=== PATIENT | male | born 1975 | race American Indian/Alaskan Native ===

== ENCOUNTER 2017-01-07 00:47 | Emergency (ER) | payer SELFPAY | END 2017-01-07 01:00 | disposition left against medical advice (07) | LOC: ED 00:47 | DX: M54.9 Dorsalgia, unspecified (principal); M54.2 Cervicalgia; Z53.21 Procedure and treatment not carried out due to patient leaving prior to being seen by health care provider; Y93.9 Activity, unspecified; Y92.9 Unspecified place or not applicable; Y99.9 Unspecified external cause status ==

== ENCOUNTER 2017-08-29 13:17 | Emergency (ER) | payer SELFPAY ==
[2017-08-29 14:18] VITALS: BP 129/78
[2017-08-29 16:01] LABS: Basophils % (Auto) 0.4 % (0.0-1.8); Eosinophils % (Auto) 0.1 % (0.0-4.3); Hematocrit 47.2 % (35.5-45.6); Hemoglobin 16.1 gm/dl (11.8-15.2); Lymphocytes # (Auto) 1.1 K/mm3 (1.2-5.4); Lymphocytes % (Auto) 13.2 % (13.4-35.0); Mean Corpuscular HGB Conc 34 % (32-34); Mean Corpuscular Hemoglobin 32 pg (28-32); Mean Corpuscular Volume 94 fl (84-94); Monocytes # (Auto) 0.4 K/mm3 (0.0-0.8); Monocytes % (Auto) 4.4 % (0.0-7.3); Platelet Count 291 K/mm3 (140-440); Red Blood Count 5.02 M/mm3 (3.65-5.03); Red Cell Distribution Width 13.4 % (13.2-15.2)
[2017-08-29 16:25] LABS: Alanine Aminotransferase 15 units/L (7-56); Albumin 4.2 g/dL (3.9-5); BUN/Creatinine Ratio 13; Blood Urea Nitrogen 9 mg/dL (9-20); Calcium 9.6 mg/dL (8.4-10.2); Hemolysis Index 63
[2017-08-29] MEDS ORDERED: ZOFRAN ODT PO ONE (18:39)
[2017-08-29] MEDS ORDERED: NACL 0.9% 1000 ML 1,000 ML IV ONE (18:48)
--- NOTE | 2017-08-30 05:12 | Emergency Department Report ---
ED General Adult HPI - General Chief complaint: Abdominal Pain Stated complaint: NAUSEA/VOMITING Time Seen by Provider: 08/30/17 05:03 Source: EMS Mode of arrival: Wheelchair Limitations: No Limitations - History of Present Illness Initial comments: Type II diabetic ran out of his insulin sugar was high got nausea vomiting w/ abd cramps, he denies any fever or denies any other complaints he's had a little bit of intermittent abdominal pain after he throws up no more vomiting in the ED at present. Denies chest pain denies fever denies back pain denies headache stiff neck or cough pain or leg pain or swelling, no black or blood in emesis or stool, ran out of insulin and noncompliatn w. meds, hx of abd pain in past sx are similar to that, no fever no chills denies pain Severity scale (0 -10): 0 - Related Data Home Medications Medication Instructions Recorded Confirmed Last Taken Insulin Glargine,Hum.rec.anlog 40 unit SQ QHS 07/29/14 07/29/14 07/28/14 [Lantus] 1 Previous Rx's Medication Instructions Recorded Last Taken Type methOCARBAMOL [Robaxin] 500 mg PO BID #10 tab 07/29/14 Unknown Rx traMADol [Ultram] 50 mg PO Q6HR PRN #14 tablet 07/29/14 Unknown Rx Ciprofloxacin HCl [Ciprofloxacin 500 mg PO BID #14 tablet 02/27/15 Unknown Rx TAB] Doxycycline [Vibramycin CAP] 100 mg PO Q12HR #14 capsule 03/13/15 Unknown Rx metroNIDAZOLE [Flagyl TAB] 500 mg PO Q12HR #14 tab 03/13/15 Unknown Rx Insulin Aspart [NovoLOG Flexpen] 100 unit SQ AC #5 insuln.pen 08/30/17 Unknown Rx Insulin Glargine,Hum.rec.anlog 40 unit SQ HS #1 vial 08/30/17 Unknown Rx [Lantus] Allergies Allergy/AdvReac Type Severity Reaction Status Date / Time amoxicillin AdvReac Unknown Verified 02/26/15 19:26 ED Review of Systems ROS: Stated complaint: NAUSEA/VOMITING Other details as noted in HPI Comment: All other systems reviewed and negative Constitutional: denies: diaphoresis, fever, malaise, weakness Eyes: denies: eye discharge, vision change Respiratory: denies: orthopnea, shortness of breath, SOB with exertion, SOB at rest, stridor, wheezing Cardiovascular: denies: chest pain, palpitations, dyspnea on exertion, orthopnea , edema, syncope, paroxysmal nocturnal dyspnea Gastrointestinal: nausea, vomiting. denies: diarrhea, constipation, hematemesis , melena, hematochezia Genitourinary: denies: hematuria, discharge, testicular pain, testicular mass Musculoskeletal: denies: joint swelling, arthralgia, myalgia Neurological: denies: numbness, paresthesias, confusion, abnormal gait, vertigo ED Past Medical Hx - Past Medical History Hx Diabetes: Yes (IDDM) Additional medical history: high cholesterol - Surgical History Additional Surgical History: carpal tunnel - Social History Smoking Status: Never Smoker Substance Use Type: None - Medications Home Medications: Home Medications Medication Instructions Recorded Confirmed Last Taken Type Insulin Glargine,Hum.rec.anlog 40 unit SQ QHS 07/29/14 07/29/14 07/28/14 History [Lantus] 1 methOCARBAMOL [Robaxin] 500 mg PO BID #10 tab 07/29/14 Unknown Rx traMADol [Ultram] 50 mg PO Q6HR PRN #14 tablet 07/29/14 Unknown Rx Ciprofloxacin HCl [Ciprofloxacin 500 mg PO BID #14 tablet 02/27/15 Unknown Rx TAB] Doxycycline [Vibramycin CAP] 100 mg PO Q12HR #14 capsule 03/13/15 Unknown Rx metroNIDAZOLE [Flagyl TAB] 500 mg PO Q12HR #14 tab 03/13/15 Unknown Rx Insulin Aspart [NovoLOG Flexpen] 100 unit SQ AC #5 insuln.pen 08/30/17 Unknown Rx Insulin Glargine,Hum.rec.anlog 40 unit SQ HS #1 vial 08/30/17 Unknown Rx [Lantus] ED Physical Exam - General Limitations: No Limitations General appearance: alert, in no apparent distress, anxious - Head Head exam: Present: atraumatic, normocephalic - Eye Eye exam: Present: normal appearance, PERRL, EOMI - ENT ENT exam: Present: normal exam, normal orophraynx - Neck Neck exam: Present: normal inspection. Absent: tenderness, meningismus - Respiratory Respiratory exam: Present: normal lung sounds bilaterally. Absent: respiratory distress, wheezes, rales, rhonchi, stridor, chest wall tenderness, accessory muscle use, decreased breath sounds, prolonged expiratory - Cardiovascular Cardiovascular Exam: Present: regular rate, normal rhythm, normal heart sounds. Absent: systolic murmur, diastolic murmur, rubs, gallop - GI/Abdominal GI/Abdominal exam: Present: soft. Absent: tenderness, guarding, rebound, mass, bruit, pulsatile mass - Extremities Exam Extremities exam: Present: normal inspection, normal capillary refill. Absent: pedal edema, joint swelling, calf tenderness - Back Exam Back exam: Present: normal inspection. Absent: CVA tenderness (L), muscle spasm , paraspinal tenderness, vertebral tenderness - Neurological Exam Neurological exam: Present: alert, oriented X3, CN II-XII intact. Absent: motor sensory deficit - Skin Skin exam: Absent: cyanosis, diaphoretic, erythema, urticaria, vesicles, petechiae, pallor, abrasion, ecchymosis ED Course Vital Signs 08/29/17 14:14 Temperature 98.2 F Pulse Rate 71 Respiratory 20 Rate Blood Pressure 129/78 O2 Sat by Pulse 98 Oximetry - Reevaluation(s) Reevaluation #1: 08/30/17 05:48 pt given one more liter in ed, ED Medical Decision Making - Lab Data Result diagrams: 08/29/17 15:46 08/29/17 15:46 - Medical Decision Making Patient's vomiting was controlled with Zofran he was given a liter. Repeat glucose was 276 he did refuse a blood gas he also refuses re-stick to check for ketones and repeat chemistry he did have 1 L of fluids he is now stating he just wants go AMA and have us refill his insulin he is alert and oriented 3 without complaints he did feel like he needed another liter however his IV was accidentally pulled at that point he became angry and said I does want to do like to refill his insulin he is here tolerating plenty of fluids and he did refuse an ABG. he did refuse chemistry and check lipase he was unable to produce urine as well. He has no surgical abdomen at this time he has no nausea vomiting no persistent nausea and vomiting is resolved vs signs were stable. Normal heart rate and pulse and blood pressure he was afebrile and nontoxic the abdomen had no acute abdomen was soft and nontender throughout. He will need to see his regular doctor or return immediately if neurologic symptoms or call 911 as previously noted no acute abdomen at this time and he was tolerating by mouth, ph is 7.4, tolerating po , given another liter and stable outpt fu Critical care attestation.: If time is entered above; I have spent that time in minutes in the direct care of this critically ill patient, excluding procedure time. ED Disposition Clinical Impression: Poorly controlled diabetes mellitus Disposition: DC-01 TO HOME OR SELFCARE Is pt being admited?: No Condition: Stable Instructions: Diabetes Mellitus Type 2 in Adults (ED) Additional Instructions: return if new or alarmng symptoms Prescriptions: Insulin Aspart [NovoLOG Flexpen] 100 unit SQ AC #5 insuln.pen Insulin Glargine,Hum.rec.anlog [Lantus] 40 unit SQ HS #1 vial Referrals: PRIMARY CARE, [Primary Care Provider] - 3-5 Days Time of Disposition: 06:20
[2017-08-30] MEDS ORDERED: NACL 0.9% 1000 ML 1,000 ML IV ONE (05:47)
== END 2017-08-30 06:35 | disposition home or self-care (01) ==
LOC: ED 13:17
DX: R10.9 Unspecified abdominal pain (principal); R11.2 Nausea with vomiting, unspecified; E11.9 Type 2 diabetes mellitus without complications
CPT/HCPCS: 36415; 80053; 82803; 82962; 85025; 96360; 99283; J7030; Q0162

== ENCOUNTER 2019-08-03 16:22 | Inpatient (IN) | payer OTHER ==
--- NOTE | 2019-08-03 16:27 | Emergency Department Report ---
ED Neuro Deficit HPI - General Chief Complaint: Neuro Symptoms/Deficit Stated Complaint: NEURO ISSUES Time Seen by Provider: 08/03/19 16:24 Source: patient, EMS (verbal report received from emergency medical services. EMS documentation not available at time of chart dictation ), RN notes reviewed Mode of arrival: Wheelchair Limitations: No Limitations, Physical Limitation - History of Present Illness Initial Comments: Memory care : Patient does not recall, believes they're in the [facility] network Past medical history: Diabetes, distant history of right shoulder fracture/fall The patient is a 44-year-old gentleman brought to the hospital by emergency medical services a possible code stroke. Patient denies physical pain at this time. Neurologic deficits include facial droop, and slurred speech. Last known well time was last night. Patient woke up this morning with the symptoms. He denies physical pain. He denies additional symptoms. He specifically denies rash, sore throat, cold/URI symptoms, and he denies travel to areas that have endemic Lyme disease. -: This morning (she woke up with symptoms. Last known well time was last night.) Location: speech, right face Presenting Symptoms: Present: Facial Droop/Numbness, Unable to Speak Clearly. Absent: Weak/Paralyzed One Side, Sudden, Severe Headache, Blurred/Loss of Vision, Altered Mental Status History of same: No On Anticoagulants: No Associated Symptoms: denies other symptoms - Related Data Home Medications: Home Medications Medication Instructions Recorded Confirmed Last Taken Insulin Glargine,Hum.rec.anlog 40 unit SQ QHS 07/29/14 07/29/14 07/28/14 [Lantus] 1 Previous Rx's Medication Instructions Recorded Last Taken Type methOCARBAMOL [Robaxin] 500 mg PO BID #10 tab 07/29/14 Unknown Rx traMADoL [Ultram] 50 mg PO Q6HR PRN #14 tablet 07/29/14 Unknown Rx Ciprofloxacin HCl [Ciprofloxacin 500 mg PO BID #14 tablet 02/27/15 Unknown Rx TAB] DOXYCYCLINE Hyclate [Vibramycin 100 mg PO Q12HR #14 capsule 03/13/15 Unknown Rx CAP] metroNIDAZOLE [Flagyl TAB] 500 mg PO Q12HR #14 tab 03/13/15 Unknown Rx Insulin Aspart (Nf) [NovoLOG 100 unit SQ AC #5 insuln.pen 08/30/17 Unknown Rx Flexpen] Insulin Glargine,Hum.rec.anlog 40 unit SQ HS #1 vial 08/30/17 Unknown Rx [Lantus] Allergies/Adverse Reactions: Allergies Allergy/AdvReac Type Severity Reaction Status Date / Time amoxicillin AdvReac Unknown Verified 02/26/15 19:26 ED Review of Systems ROS: Stated complaint: NEURO ISSUES Other details as noted in HPI Constitutional: denies: fever Eyes: denies: eye discharge ENT: denies: congestion Cardiovascular: denies: syncope Gastrointestinal: denies: abdominal pain Genitourinary: denies: dysuria Musculoskeletal: myalgia (chronic right-sided shoulder pain secondary to subacute/chronic right-sided shoulder fracture) Neurological: denies: headache Psychiatric: anxiety Hematological/Lymphatic: denies: easy bleeding ED Past Medical Hx - Past Medical History Previous Medical History?: Yes Hx Diabetes: Yes (IDDM) Additional medical history: high cholesterol - Surgical History Past Surgical History?: Yes Additional Surgical History: carpal tunnel - Social History Smoking Status: Never Smoker Substance Use Type: None - Medications Home Medications: Home Medications Medication Instructions Recorded Confirmed Last Taken Type Insulin Glargine,Hum.rec.anlog 40 unit SQ QHS 07/29/14 07/29/14 07/28/14 History [Lantus] 1 methOCARBAMOL [Robaxin] 500 mg PO BID #10 tab 07/29/14 Unknown Rx traMADoL [Ultram] 50 mg PO Q6HR PRN #14 tablet 07/29/14 Unknown Rx Ciprofloxacin HCl [Ciprofloxacin 500 mg PO BID #14 tablet 02/27/15 Unknown Rx TAB] DOXYCYCLINE Hyclate [Vibramycin 100 mg PO Q12HR #14 capsule 03/13/15 Unknown Rx CAP] metroNIDAZOLE [Flagyl TAB] 500 mg PO Q12HR #14 tab 03/13/15 Unknown Rx Insulin Aspart (Nf) [NovoLOG 100 unit SQ AC #5 insuln.pen 08/30/17 Unknown Rx Flexpen] Insulin Glargine,Hum.rec.anlog 40 unit SQ HS #1 vial 08/30/17 Unknown Rx [Lantus] ED Neuro Physical Exam - General Limitations: Physical Limitation General appearance: alert, in no apparent distress Suspected Stroke: Yes - Head Head exam: Present: atraumatic, normocephalic - Eye Eye exam: Present: normal appearance, PERRL, EOMI, other (visual acuity intact to finger counting and color perception at the close distance). Absent: nystagmus - ENT ENT exam: Present: normal exam, normal orophraynx, mucous membranes moist, normal external ear exam, other (is a right-sided facial droop. The forehead is spared.) - Neck Neck exam: Present: normal inspection, full ROM. Absent: tenderness, meningismus - Respiratory Respiratory exam: Present: normal lung sounds bilaterally. Absent: respiratory distress - Cardiovascular Cardiovascular Exam: Present: regular rate, normal rhythm, normal heart sounds. Absent: bradycardia, tachycardia, irregular rhythm, systolic murmur, diastolic murmur, rubs, gallop - GI/Abdominal GI/Abdominal exam: Present: soft. Absent: distended, tenderness, guarding, rebound, rigid, pulsatile mass - Rectal Rectal exam: Present: deferred - Extremities Exam Extremities exam: Present: normal inspection, other (2+ pulses noted in the bilateral upper and lower extremities. There is no long bony tenderness. The muscular compartments are soft. The right upper extremity is in a sling). Absent: tenderness, calf tenderness - Back Exam Back exam: Present: normal inspection. Absent: tenderness, CVA tenderness (R), CVA tenderness (L), vertebral tenderness - Neurological Exam Neurological exam: Present: alert, oriented X3, other (is a right-sided facial droop. The forehead is spared. The extraocular movements are intact bilaterally. The tongue is midline. V1, V2, V3 intact to sensation and light touch bilaterally.). Absent: motor sensory deficit - NIHSS Assessment Interval: Baseline 1a. Level of Consciousness: alert/keenly responsive 1b. LOC Questions: answers both correctly 1c. LOC Commands: performs tasks correctly 2. Best Gaze: normal 3. Visual: no visual loss 4. Facial Palsy: partial paralysis 5b. Motor Arm Right: no drift 5a. Motor Arm Left: no drift 6a. Motor Leg Left: no drift 6b. Motor Leg Right: no drift 7. Limb Ataxia: absent 8. Sensory: normal 9. Best Language: no aphasia 10. Dysarthria: normal 11. Extinction/Inattention: no abnormality Total Score: 2 Stroke Severity: Minor Stroke - Psychiatric Psychiatric exam: Present: normal affect, normal mood - Skin Skin exam: Present: warm, dry, intact, normal color. Absent: rash ED Course Vital Signs 08/03/19 08/03/19 08/03/19 16:40 16:51 17:30 Pulse Rate 74 77 Respiratory 16 12 Rate Blood Pressure 165/96 Blood Pressure 168/102 [Left] O2 Sat by Pulse 100 99 100 Oximetry 08/03/19 08/03/19 18:00 18:30 Pulse Rate 73 71 Respiratory 13 15 Rate Blood Pressure 174/78 170/94 Blood Pressure [Left] O2 Sat by Pulse 99 99 Oximetry - Reevaluation(s) Reevaluation #1: 08/03/19 19:43 Case presented to Hospital nurse practitioner Leila Salgado, working in conjunction with Dr. Griffin, patient to be admitted to the medical service. - Lab Data Result diagrams: 08/03/19 16:58 08/03/19 16:58 Lab Results 08/03/19 08/03/19 08/03/19 Range/Units 16:58 16:58 16:58 WBC 7.0 (4.5-11.0) K/mm3 RBC 3.78 (3.65-5.03) M/mm3 Hgb 12.4 (11.8-15.2) gm/dl Hct 36.1 (35.5-45.6) % MCV 96 H (84-94) fl MCH 33 H (28-32) pg MCHC 34 (32-34) % RDW 13.8 (13.2-15.2) % Plt Count 319 (140-440) K/mm3 Lymph % (Auto) 28.1 (13.4-35.0) % [place] % (Auto) 9.1 H (0.0-7.3) % Eos % (Auto) 1.6 (0.0-4.3) % Baso % (Auto) 0.6 (0.0-1.8) % Lymph # 2.0 (1.2-5.4) K/mm3 [place] # 0.6 (0.0-0.8) K/mm3 Eos # 0.1 (0.0-0.4) K/mm3 Baso # 0.0 (0.0-0.1) K/mm3 Seg Neutrophils % 60.6 (40.0-70.0) % Seg Neutrophils # 4.3 (1.8-7.7) K/mm3 PT 13.0 (12.2-14.9) Sec. INR 0.97 (0.87-1.13) APTT 26.6 (24.2-36.6) Sec. Thrombin Time 16.9 (15.1-19.6) Sec. Sodium 139 (137-145) mmol/L Potassium 3.9 (3.6-5.0) mmol/L Chloride 100.1 (98-107) mmol/L Carbon Dioxide 26 (22-30) mmol/L Anion Gap 17 mmol/L BUN 19 (9-20) mg/dL Creatinine 0.7 L (0.8-1.5) mg/dL Estimated GFR > 60 ml/min BUN/Creatinine Ratio 27 % Glucose 332 H (75-100) mg/dL Calcium 9.6 (8.4-10.2) mg/dL Magnesium 2.00 (1.7-2.3) mg/dL Total Bilirubin 0.40 (0.1-1.2) mg/dL AST 17 (5-40) units/L ALT 21 (7-56) units/L Alkaline Phosphatase 111 (35-129) units/L Total Creatine Kinase 52 L (55-170) units/L CK-MB (CK-2) 1.6 (0.0-4.0) ng/mL CK-MB (CK-2) Rel Index 3.0 (0-4) Troponin T < 0.010 (0.00-0.029) ng/mL Total Protein 6.7 (6.3-8.2) g/dL Albumin 3.8 L (3.9-5) g/dL Albumin/Globulin Ratio 1.3 % TSH (0.270-4.200) mlU/mL Plasma/Serum Alcohol (0-0.07) % 08/03/19 08/03/19 Range/Units 16:58 16:58 WBC (4.5-11.0) K/mm3 RBC (3.65-5.03) M/mm3 Hgb (11.8-15.2) gm/dl Hct (35.5-45.6) % MCV (84-94) fl MCH (28-32) pg MCHC (32-34) % RDW (13.2-15.2) % Plt Count (140-440) K/mm3 Lymph % (Auto) (13.4-35.0) % [place] % (Auto) (0.0-7.3) % Eos % (Auto) (0.0-4.3) % Baso % (Auto) (0.0-1.8) % Lymph # (1.2-5.4) K/mm3 [place] # (0.0-0.8) K/mm3 Eos # (0.0-0.4) K/mm3 Baso # (0.0-0.1) K/mm3 Seg Neutrophils % (40.0-70.0) % Seg Neutrophils # (1.8-7.7) K/mm3 PT (12.2-14.9) Sec. INR (0.87-1.13) APTT (24.2-36.6) Sec. Thrombin Time (15.1-19.6) Sec. Sodium (137-145) mmol/L Potassium (3.6-5.0) mmol/L Chloride (98-107) mmol/L Carbon Dioxide (22-30) mmol/L Anion Gap mmol/L BUN (9-20) mg/dL Creatinine (0.8-1.5) mg/dL Estimated GFR ml/min BUN/Creatinine Ratio % Glucose (75-100) mg/dL Calcium (8.4-10.2) mg/dL Magnesium (1.7-2.3) mg/dL Total Bilirubin (0.1-1.2) mg/dL AST (5-40) units/L ALT (7-56) units/L Alkaline Phosphatase (35-129) units/L Total Creatine Kinase (55-170) units/L CK-MB (CK-2) (0.0-4.0) ng/mL CK-MB (CK-2) Rel Index (0-4) Troponin T (0.00-0.029) ng/mL Total Protein (6.3-8.2) g/dL Albumin (3.9-5) g/dL Albumin/Globulin Ratio % TSH 1.940 (0.270-4.200) mlU/mL Plasma/Serum Alcohol < 0.01 (0-0.07) % - EKG Data -: EKG Interpreted by Md EKG shows normal: sinus rhythm Rate: normal When compared to previous EKG there are: previous EKG unavailable 08/03/19 19:12 Is no prior EKG available for comparison. The EKG shows a sinus rhythm, there is a normal axis, the QTC is 414 ms, the EKG is not consistent with ST elevation myocardial infarction. - Radiology Data Radiology results: report reviewed, image reviewed Print Report Referring Physician: STANISLAW LYNNE Patient Name: MOISE WALDROP Date of : 1975 Sex: Male Report Date: 2019-08-03 Report Status: Finalized Findings [facility] [address] [place] [address] Cat Scan Report Signed Patient: MOISE WALDROP MR#: [id number] 54 : 1975 Acct:[id number] Age/Sex: 44 / M ADM Date: 08/03/19 Loc: ED Attending Dr: Davon yoo Physician: STANISLAW LYNNE MD Date of Service: 08/03/19 Procedure(s): CT head/brain wo con Accession Number(s): [id number] cc: STANISLAW LYNNE MD CT HEAD WITHOUT CONTRAST INDICATION / CLINICAL INFORMATION: MAIN: Stroke symptoms-CODE STROKE PLEASE CALL [phone]. Facial drooping. Symptoms were present on awakening this morning. TECHNIQUE: All CT scans at this location are performed using CT dose reduction for ALARA by means of automated exposure control. COMPARISON: None available. FINDINGS: HEMORRHAGE: No evidence of intracranial hemorrhage or extra-axial fluid collection. EXTRA-AXIAL SPACES: Cortical sulci, sylvian fissures and basilar cisterns have an unremarkable appearance. VENTR ICULAR SYSTEM: The ventricular system is of normal size and configuration. CEREBRAL PARENCHYMA: An area of decreased attenuation is observed in the left gangliocapsular region. This may represent an area of infarction, age indeterminate. Magnetic resonance imaging would be useful for further evaluation if clinically warranted.. No additional areas of abnormal brain parenchymal attenuation are identified. MIDLINE SHIFT OR HERNIATION: There is no mass effect. CEREBELLUM / BRAINSTEM: Brainstem and cerebellum have an unremarkable appearance. INTRACRANIAL VESSELS:No abnormalities are identified on this noncontrast head CT. ORBITS: visualized portions of the orbits have an unremarkable appearance. SOFT TISSUES of HEAD: No significant abnormality. CALVARIUM: Evaluation of bone windows reveals no abnormalities. PARANASAL SINUSES / MASTOID AIR CELLS: Paranasal sinuses are free from inflammatory m ucosal disease. Mastoid air cells are normally pneumatized. IMPRESSION: 1. Low- attenuation region in the left gangliocapsular region may represent an area of infarction, age indeterminate. Code stroke: I called report of this study to Dr. Lynne of the [facility] emergency department at about 1547 Central standard time on 08/03/2019. Signer Name: Merrill Reyes MD Signed: 08/03/2019 5:02 PM Workstation Name: [id number] Transcribed By: Dictated By: Merrill Reyes MD Electronically Authenticated By: Merrill Reyes MD Signed Date/Time: 08/03/19 1702 - Medical Decision Making Differential diagnosis, including but not limited to: Multiple sclerosis, Batista's palsy, subacute stroke Assessment and plan: 44-year-old gentleman with diabetes, found to have right- sided facial droop, with forehead sparing. He denies other symptoms suggestive of Batista's palsy. His last known well time was last night. Patient presents mo re than 4.5 hours after symptom onset and is therefore not a TPA candidate. His examination is not consistent with a large vessel occlusion. He is seen in consultation was stroke neurology, Dr. Petty The aforementioned neurologist makes similar recommendations. He will be given aspirin and insulin. Hospital physician is paged for presumed subacute stroke. Hour aforementioned neurology [facility] also agrees that this is unlikely to be Batista's palsy, and at this point in time, recommends not giving prednisone, and antivirals. - Core Measures Measure Exclusions: not indicated - Thrombolytic Inclusion/Exclusion Thrombolytic Exclusion Criteria: Onset of Symptoms Unknown Critical care attestation.: If time is entered above; I have spent that time in minutes in the direct care of this critically ill patient, excluding procedure time. ED Disposition Clinical Impression: Stroke Disposition: DC-09 OP ADMIT IP TO THIS HOSP Is pt being admited?: Yes Condition: Good Referrals: PRIMARY CARE, [Primary Care Provider] - 3-5 Days
--- NOTE | 2019-08-03 16:57 | Emergency Department Report ---
HPI - General Chief Complaint: Neuro Symptoms/Deficit Time Seen by Provider: 08/03/19 16:24 - HPI HPI: [facility] Tele[facility] Date of Service: 08/03/2019 16:30:05 Impression: RO Acute Ischemic Stroke Comments: not iv tpa candidate with onset of sxs greater than 4.5hrs Low clinical suspicion for large vessel occlusive disease process. Metrics: Last Known Well: 08/03/2019 12:00:00 [facility] Notification Time: 08/03/2019 16:30:05 Arrival Time: 08/03/2019 16:22:00 Stamp Time: 08/03/2019 16:30:05 Time First Login Attempt: 08/03/2019 16:38:46 Video Start Time: 08/03/2019 16:38:46 Symptoms: facial droop NIHSS Start Assessment Time: 08/03/2019 16:40:00 Patient is not a candidate for tPA. Patient was not deemed candidate for tPA thrombolytics because of Last Well Known Above 4.5 Hours. Video End Time: 08/03/2019 16:44:09 CT head was reviewed and results were: Subtle area of hypoattenuation in L IC region suspect evolving stroke vs artificact Advanced imaging was not obtained as the presentation was not suggestive of Large Vessel Occlusive Disease. ER Physician notified of the decision on thrombolytics management on 08/03/2019 16:44:00 Our recommendations are outlined below. Recommendations: Activate Stroke Protocol Admission/Order Set Stroke/Telemetry Floor Neuro Checks Bedside Swallow Eval DVT Prophylaxis IV Fluids, Normal Saline Head of Bed Below 30 Degrees Euglycemia and Avoid Hyperthermia (PRN Acetaminophen) Antiplatelet Therapy Recommended Recommended Scan: MRI Head Without Contrast MRA Head Without Contrast Carotid Dopplers Echocardiogram - Transthoracic Echocardiogram Lipid Panel to Be Obtained, if Not Done in the Last Three Months Therapies: Physical Therapy, Occupational Therapy, Speech Therapy Assessment When Applicable Dysphaghia Screen: Swallow Evaluation, Bedside NPO Until Swallow Evaluation Disposition: If needed consider Inpatient neurology Follow up Sign Out: Discussed with Emergency Department Provider History of Present Illness: Patient was brought by EMS for symptoms of facial droop Patient with broken R arm , presents with R facial droop that developed after he woke up from nap. He went to bed at 12pm with no sxs and woke up with R facial droop. He denies vision loss, focal weakness of limbs or numbness. He denies any a/c use and no prior hx of stroke. He takes asa daily CT head was reviewed. Examination: BP(168/102), Pulse(74), Blood Glucose(Pending) 1A: Level of Consciousness - Alert; keenly responsive + 0 1B: Ask Month and Age - Both Questions Right + 0 1C: Blink Eyes & Squeeze Hands - Performs Both Tasks + 0 2: Test Horizontal Extraocular Movements - Normal + 0 3: Test Visual Weston - No Visual Loss + 0 4: Test Facial Palsy (Use Grimace if Obtunded) - Partial paralysis (lower face) + 2 5A: Test Left Arm Motor Drift - No Drift for 10 Seconds + 0 5B: Test Right Arm Motor Drift - No Drift for 10 Seconds + 0 6A: Test Left Leg Motor Drift - No Drift for 5 Seconds + 0 6B: Test Right Leg Motor Drift - No Drift for 5 Seconds + 0 7: Test Limb Ataxia (FNF/Heel-Martines) - No Ataxia + 0 8: Test Sensation - Normal; No sensory loss + 0 9: Test Language/Aphasia - Normal; No aphasia + 0 10: Test Dysarthria - Mild-Moderate Dysarthria: Slurring but can be understood + 1 11: Test Extinction/Inattention - No abnormality + 0 NIHSS Score: 3 Patient was informed the Neurology Consult would happen via TeleHealth consult by way of interactive audio and video telecommunications and consented to receiving care in this manner. Due to the immediate potential for life-threatening deterioration due to underlying acute neurologic illness, I spent 35 minutes providing critical care. This time includes time for face to face visit via telemedicine, review of medical records, imaging studies and discussion of findings with providers, the patient and/or family. Dr Leanne Petty [facility] Case [id number] ED Past Medical Hx - Past Medical History Previous Medical History?: Yes Hx Diabetes: Yes (IDDM) Additional medical history: high cholesterol - Surgical History Past Surgical History?: Yes Additional Surgical History: carpal tunnel - Social History Smoking Status: Never Smoker Substance Use Type: None - Medications Home Medications: Home Medications Medication Instructions Recorded Confirmed Last Taken Type Insulin Glargine,Hum.rec.anlog 40 unit SQ QHS 07/29/14 07/29/14 07/28/14 History [Lantus] 1 methOCARBAMOL [Robaxin] 500 mg PO BID #10 tab 07/29/14 Unknown Rx traMADoL [Ultram] 50 mg PO Q6HR PRN #14 tablet 07/29/14 Unknown Rx Ciprofloxacin HCl [Ciprofloxacin 500 mg PO BID #14 tablet 02/27/15 Unknown Rx TAB] DOXYCYCLINE Hyclate [Vibramycin 100 mg PO Q12HR #14 capsule 03/13/15 Unknown Rx CAP] metroNIDAZOLE [Flagyl TAB] 500 mg PO Q12HR #14 tab 03/13/15 Unknown Rx Insulin Aspart (Nf) [NovoLOG 100 unit SQ AC #5 insuln.pen 08/30/17 Unknown Rx Flexpen] Insulin Glargine,Hum.rec.anlog 40 unit SQ HS #1 vial 08/30/17 Unknown Rx [Lantus] ED Review of Systems ROS: Stated complaint: NEURO ISSUES Other details as noted in HPI Physical Exam - Physical Exam Vital Signs: Vital Signs 08/03/19 16:51 Pulse Rate 74 Respiratory 16 Rate Blood Pressure 168/102 [Left] O2 Sat by Pulse 99 Oximetry ED Course Vital Signs 08/03/19 16:51 Pulse Rate 74 Respiratory 16 Rate Blood Pressure 168/102 [Left] O2 Sat by Pulse 99 Oximetry Critical care attestation.: If time is entered above; I have spent that time in minutes in the direct care of this critically ill patient, excluding procedure time. ED Disposition Clinical Impression: Stroke Disposition: OP ADMIT IP TO THIS HOSP Is pt being admited?: Yes Condition: Stable
--- NOTE | 2019-08-03 17:06 | Cat Scan Report ---
CT HEAD WITHOUT CONTRAST INDICATION / CLINICAL INFORMATION: MAIN: Stroke symptoms-CODE STROKE PLEASE CALL [phone]. Facial drooping. Symptoms were present on a wakening this morning. TECHNIQUE: All CT scans at this location are performed using CT dose reduction for ALARA by means of automated e xposure control. COMPARISON: None available. FINDINGS: HEMORRHAGE: No evidence of intracranial hemorrhage or extra-axial fluid collection. EXTRA-AXIAL SPACES: Cortical sulci, sylvian fissures and basilar cisterns have an unremarkable appear ance. VENTRICULAR SYSTEM: The ventricular system is of normal size and configuration. CEREBRAL PARENCHYMA: An area of decreased attenuation is observed in the left gangliocapsular region. This may represent an area of infarction, age indeterminate. Magnetic resonance imaging would be use ful for further evaluation if clinically warranted.. No additional areas of abnormal brain parenchyma l attenuation are identified. MIDLINE SHIFT OR HERNIATION: There is no mass effect. CEREBELLUM / BRAINSTEM: Brainstem and cerebellum have an unremarkable appearance. INTRACRANIAL VESSELS:No abnormalities are identified on this noncontrast head CT. ORBITS: visualized portions of the orbits have an unremarkable appearance. SOFT TISSUES of HEAD: No significant abnormality. CALVARIUM: Evaluation of bone windows reveals no abnormalities. PARANASAL SINUSES / MASTOID AIR CELLS: Paranasal sinuses are free from inflammatory mucosal disease. Mastoid air cells are normally pneumatized. IMPRESSION: 1. Low-attenuation region in the left gangliocapsular region may represent an area of infarction, age indeterminate. Code stroke: I called report of this study to Dr. Lynne of the [facility] emergency depar tment at about 1547 Central standard time on 08/03/2019. Signer Name: Merrill Reyes MD Signed: 08/03/2019 5:02 PM Workstation Name: [id number]
[2019-08-03 17:29] LABS: Basophils % (Auto) 0.6 % (0.0-1.8); Eosinophils # (Auto) 0.1 K/mm3 (0.0-0.4); Eosinophils % (Auto) 1.6 % (0.0-4.3); Hematocrit 36.1 % (35.5-45.6); Hemoglobin 12.4 gm/dl (11.8-15.2); Lymphocytes % (Auto) 28.1 % (13.4-35.0); Mean Corpuscular HGB Conc 34 % (32-34); Mean Corpuscular Volume 96 fl (84-94); Monocytes # (Auto) 0.6 K/mm3 (0.0-0.8); Monocytes % (Auto) 9.1 % (0.0-7.3); Platelet Count 319 K/mm3 (140-440); Red Blood Count 3.78 M/mm3 (3.65-5.03); Red Cell Distribution Width 13.8 % (13.2-15.2)
[2019-08-03 17:39] LABS: Creatine Kinase MB 1.6 ng/mL (0.0-4.0)
[2019-08-03 17:41] LABS: Alanine Aminotransferase 21 units/L (7-56); Albumin 3.8 g/dL (3.9-5); BUN/Creatinine Ratio 27; Blood Urea Nitrogen 19 mg/dL (9-20); Calcium 9.6 mg/dL (8.4-10.2); Hemolysis Index 6
[2019-08-03 17:44] LABS: INR 0.97 (0.87-1.13); Partial Thromboplastin Time 26.6 Sec. (24.2-36.6); Thrombin Time 16.9 Sec. (15.1-19.6)
[2019-08-03] MEDS ORDERED: ASPIRIN 81 MG TAB CHEW PO ONE (18:05)
[2019-08-03] MEDS ORDERED: INSULIN REGULAR, HUMAN 100 UNITS/1 ML IV ONE (18:05)
[2019-08-03] MEDS ORDERED: ACETAMINOPHEN 325 MG TAB PO PRN (20:14)
[2019-08-03] MEDS ORDERED: ONDANSETRON 4 MG/2 ML INJ IV PRN (20:14)
[2019-08-03] MEDS ORDERED: DEXTROSE 50% IN WATER (25GM) 50 ML SYRINGE IV PRN (20:18)
[2019-08-03] MEDS ORDERED: PROMETHAZINE 25 MG RECT SUPP PR PRN (20:21)
[2019-08-03] MEDS ORDERED: MAGNESIUM HYDROXIDE (MOM) ORAL LIQD UDC PO PRN (20:21)
[2019-08-03] MEDS ORDERED: METOCLOPRAMIDE 10 MG TAB PO PRN (20:21)
[2019-08-03] MEDS ORDERED: NICOTINE 14 MG/24 HR PATCH TD ONE (22:12)
--- NOTE | 2019-08-03 22:18 | History and Physical Report ---
<STEPHAN ROSARIO - Last Filed: 08/03/19 22:42> History of Present Illness Date of examination: 08/03/19 Date of admission: 08/03/19 20:14 Chief complaint: Stroke History of present illness: 44-year-old -[place] male who is an ongoing smoker with history of insulin-dependent diabetes and HLD who presents to [facility] ED with complaints of right facial droop and slurred speech. Of note pt right arm is in sling from previous injury. Pt states that he went to bed last night at his usual state of health. He woke up this morning and noticed that he had right facial droop and his speech was slurred. Pt waited to see if his symptom would improve throughout the day before presenting to the ED. Since there was no improvement in his sy mptoms, he decided to come in to ED for further evaluation. Pt denies history of HTN or ever being prescribed antihypertensive meds. Denies n/v, fever, or headache. Past History Past Medical History: diabetes (insulin dependent), hyperlipidemia, other (denie s history of hypertension) Past Surgical History: Other (carpal tunnel) Social history: lives with family, smoking Family history: no significant family history Medications and Allergies Allergies Allergy/AdvReac Type Severity Reaction Status Date / Time amoxicillin AdvReac Unknown Verified 02/26/15 19:26 Home Medications Medication Instructions Recorded Confirmed Last Taken Type Insulin Glargine,Hum.rec.anlog 40 unit SQ QHS 07/29/14 08/04/19 07/28/14 History [Lantus] 1 methOCARBAMOL [Robaxin] 500 mg PO BID #10 tab 07/29/14 08/04/19 Unknown Rx traMADoL [Ultram] 50 mg PO Q6HR PRN #14 tablet 07/29/14 08/04/19 Unknown Rx Ciprofloxacin HCl [Ciprofloxacin 500 mg PO BID #14 tablet 02/27/15 08/04/19 Unknown Rx TAB] DOXYCYCLINE Hyclate [Vibramycin 100 mg PO Q12HR #14 capsule 03/13/15 08/04/19 Unknown Rx CAP] metroNIDAZOLE [Flagyl TAB] 500 mg PO Q12HR #14 tab 03/13/15 08/04/19 Unknown Rx Insulin Aspart (Nf) [NovoLOG 100 unit SQ AC #5 insuln.pen 08/30/17 08/04/19 Unknown Rx Flexpen] Insulin Glargine,Hum.rec.anlog 40 unit SQ HS #1 vial 08/30/17 08/04/19 Unknown Rx [Lantus] Active Meds: Active Medications Acetaminophen (Tylenol) 650 mg PO Q4H PRN PRN Reason: Pain MILD(1-3)/Fever >100.5/CARBAJAL Aspirin (Baby Aspirin) 81 mg PO QDAY IMAN Atorvastatin Calcium (Lipitor) 40 mg PO QHS IMAN Bisacodyl (Dulcolax) 10 mg IA QDAY PRN PRN Reason: Constipation Dextrose (D50w (25gm) Syringe) 0 ml IV Q30MIN PRN; Protocol PRN Reason: Hypoglycemia Docusate Sodium (Colace) 100 mg PO BID IMAN Heparin Sodium (Porcine) (Heparin) 5,000 unit SUB-Q Q12HR IMAN Hydralazine HCl (Apresoline) 10 mg IV Q4H PRN PRN Reason: Blood Pressure Insulin Human Lispro (Humalog) 0 unit SUB-Q ACHS IMAN; Protocol Magnesium Hydroxide (Milk Of Magnesia) 30 ml PO Q4H PRN PRN Reason: Constipation Metoclopramide HCl (Reglan) 10 mg PO Q6H PRN PRN Reason: Nausea And Vomiting Nicotine (Habitrol) 14 mg TD QDAY [facility] Nicotine (Habitrol) 14 mg TD ONCE ONE Stop: 08/03/19 22:13 Ondansetron HCl (Zofran) 4 mg IV Q8H PRN PRN Reason: Nausea And Vomiting Promethazine HCl (Phenergan) 25 mg IA Q6H PRN PRN Reason: Nausea And Vomiting Sodium Chloride (Sodium Chloride Flush Syringe 10 Ml) 10 ml IV BID IMAN Sodium Chloride (Sodium Chloride Flush Syringe 10 Ml) 10 ml IV PRN PRN PRN Reason: LINE FLUSH Review of Systems All systems: negative Neurological: change in speech, other (right facial droop) Exam - Physical Exam Narrative exam: General appearance: Present: No acute distress, alert and orientedx3, slightly slurred speech, mouth asymmetry, adult male - EENT Eyes: Present: PERRL, EOM intact ENT: hearing intact, missing teeth - Neck Neck: Present: supple, normal ROM - Respiratory Respiratory effort: Non-labored Respiratory: bilateral: CTA with diminished bases bilaterally - Cardiovascular Heart rate:73 (bpm) Rhythm:SR Heart Sounds: Present: S1, S2. - Extremities Extremities: no ischemia, pulses intact, right arm in sling from previous injury - Peripheral Assessment Peripheral Pulses: within normal limits - Abdominal General gastrointestinal: soft, non-tender, normal bowel sounds, - Integumentary Integumentary: Present: warm, dry - Musculoskeletal Musculoskeletal: able to move all extremities, 5/5 motor strength in extremity x4 -Neurological Neurological: CN II-XII grossly intact - Psychiatric Psychiatric: cooperative - Constitutional Vitals: Temp Pulse Resp BP Pulse Ox 71 15 170/94 99 08/03/19 18:30 08/03/19 18:30 08/03/19 18:30 08/03/19 18:30 Results - Labs CBC & Chem 7: 08/03/19 16:58 08/03/19 16:58 Labs: Laboratory Last Values WBC 7.0 K/mm3 (4.5-11.0) 08/03/19 16:58 RBC 3.78 M/mm3 (3.65-5.03) 08/03/19 16:58 Hgb 12.4 gm/dl (11.8-15.2) 08/03/19 16:58 Hct 36.1 % (35.5-45.6) 08/03/19 16:58 MCV 96 fl (84-94) H 08/03/19 16:58 MCH 33 pg (28-32) H 08/03/19 16:58 MCHC 34 % (32-34) 08/03/19 16:58 RDW 13.8 % (13.2-15.2) 08/03/19 16:58 Plt Count 319 K/mm3 (140-440) 08/03/19 16:58 Lymph % (Auto) 28.1 % (13.4-35.0) 08/03/19 16:58 Dickey % (Auto) 9.1 % (0.0-7.3) H 08/03/19 16:58 Eos % (Auto) 1.6 % (0.0-4.3) 08/03/19 16:58 Baso % (Auto) 0.6 % (0.0-1.8) 08/03/19 16:58 Lymph # 2.0 K/mm3 (1.2-5.4) 08/03/19 16:58 Dickey # 0.6 K/mm3 (0.0-0.8) 08/03/19 16:58 Eos # 0.1 K/mm3 (0.0-0.4) 08/03/19 16:58 Baso # 0.0 K/mm3 (0.0-0.1) 08/03/19 16:58 Seg Neutrophils % 60.6 % (40.0-70.0) 08/03/19 16:58 Seg Neutrophils # 4.3 K/mm3 (1.8-7.7) 08/03/19 16:58 PT 13.0 Sec. (12.2-14.9) 08/03/19 16:58 INR 0.97 (0.87-1.13) 08/03/19 16:58 APTT 26.6 Sec. (24.2-36.6) 08/03/19 16:58 Thrombin Time 16.9 Sec. (15.1-19.6) 08/03/19 16:58 Sodium 139 mmol/L (137-145) 08/03/19 16:58 Potassium 3.9 mmol/L (3.6-5.0) 08/03/19 16:58 Chloride 100.1 mmol/L (98-107) 08/03/19 16:58 Carbon Dioxide 26 mmol/L (22-30) 08/03/19 16:58 Anion Gap 17 mmol/L 08/03/19 16:58 BUN 19 mg/dL (9-20) 08/03/19 16:58 Creatinine 0.7 mg/dL (0.8-1.5) L 08/03/19 16:58 Estimated GFR > 60 ml/min 08/03/19 16:58 BUN/Creatinine Ratio 27 % 08/03/19 16:58 Glucose 332 mg/dL (75-100) H 08/03/19 16:58 Calcium 9.6 mg/dL (8.4-10.2) 08/03/19 16:58 Magnesium 2.00 mg/dL (1.7-2.3) 08/03/19 16:58 Total Bilirubin 0.40 mg/dL (0.1-1.2) 08/03/19 16:58 AST 17 units/L (5-40) 08/03/19 16:58 ALT 21 units/L (7-56) 08/03/19 16:58 Alkaline Phosphatase 111 units/L (35-129) 08/03/19 16:58 Total Creatine Kinase 52 units/L (55-170) L 08/03/19 16:58 CK-MB (CK-2) 1.6 ng/mL (0.0-4.0) 08/03/19 16:58 CK-MB (CK-2) Rel Index 3.0 (0-4) 08/03/19 16:58 Troponin T < 0.010 ng/mL (0.00-0.029) 08/03/19 16:58 Total Protein 6.7 g/dL (6.3-8.2) 08/03/19 16:58 Albumin 3.8 g/dL (3.9-5) L 08/03/19 16:58 Albumin/Globulin Ratio 1.3 % 08/03/19 16:58 TSH 1.940 mlU/mL (0.270-4.200) 08/03/19 16:58 Plasma/Serum Alcohol < 0.01 % (0-0.07) 08/03/19 16:58 - Imaging and Cardiology Imaging and Cardiology: CT Head: FINDINGS: HEMORRHAGE: No evidence of intracranial hemorrhage or extra-axial fluid collection. EXTRA-AXIAL SPACES: Cortical sulci, sylvian fissures and basilar cisterns have an unremarkable appearance. VENTRICULAR SYSTEM: The ventricular system is of normal size and configuration. CEREBRAL PARENCHYMA: An area of decreased attenuation is observed in the left gangliocapsular region. This may represent an area of infarction, age indeterminate. Magnetic resonance imaging would be useful for further evaluation if clinically warranted.. No additional areas of abnormal brain parenchymal attenuation are identified. MIDLINE SHIFT OR HERNIATION: There is no mass effect. CEREBELLUM / BRAINSTEM: Brainstem and cerebellum have an unremarkable appearance. INTRACRANIAL VESSELS:No abnormalities are identified on this noncontrast head CT. ORBITS: visualized portions of the orbits have an unremarkable appearance. SOFT TISSUES of HEAD: No significant abnormality. CALVARIUM: Evaluation of bone windows reveals no abnormalities. PARANASAL SINUSES / MASTOID AIR CELLS: Paranasal sinuses are free from inflammatory mucosal disease. Mastoid air cells are normally pneumatized. IMPRESSION: 1. Low-attenuation region in the left gangliocapsular region may represent an area of infarction, age indeterminate. Assessment and Plan Assessment and plan: 44-year-old -[place] male who is an ongoing smoker with history of right arm/shoulder inury, insulin-dependent diabetes and HLD who presents to [facility] ED with complaints of right facial droop and slurred speech. Pt was seen/ evaluated by Dr. Petty (tele-neurology). Given his last known normal was >4.5hrs ago he was not a candidate for TPA. Will admit to telemetry for further evaluation and treatment. CVA -CT Head showed: Low-attenuation region in the left gangliocapsular region may represent an area of infarction, age indeterminate -Right Facial droop -Neuro Checks -PT/OT eval pending -Lipid panel pending -Allow for permissive hypertension -Not candidate for TPA -Start ASA and statin -MRI/ MRA Head, bilateral carotid Doppler, Echo pending -Tele Neuro consulted and recommendations appreciated -Neurology consulted Insulin-dependent DM -Uncontrolled -BG 332 on admission -POC BG monitoring -SSI coverage prn -Hgb A1c pending Hx HLD -On statin -Lipid panel pending Tobacco abuse -Current smoker -Counseled for cessation for 10 minutes -Nicotine patch when necessary DVT PPX -on Heaprin Advance Directives: No VTE prophylaxis?: Chemical Plan of care discussed with patient/family: Yes <SABI CORNEJO - Last Filed: 08/04/19 02:43> History of Present Illness Date of admission: 08/03/19 20:14 Medications and Allergies Active Meds: Active Medications Acetaminophen (Tylenol) 650 mg PO Q4H PRN PRN Reason: Pain MILD(1-3)/Fever >100.5/CARBAJAL Last Admin: 08/03/19 22:54 Dose: 650 mg Documented by: Aspirin (Baby Aspirin) 81 mg PO QDAY [facility] Atorvastatin Calcium (Lipitor) 40 mg PO QHS [facility] Last Admin: 08/03/19 22:53 Dose: 40 mg Documented by: Bisacodyl (Dulcolax) 10 mg IA QDAY PRN PRN Reason: Constipation Dextrose (D50w (25gm) Syringe) 0 ml IV Q30MIN PRN; Protocol PRN Reason: Hypoglycemia Docusate Sodium (Colace) 100 mg PO BID [facility] Last Admin: 08/03/19 22:53 Dose: 100 mg Documented by: Heparin Sodium (Porcine) (Heparin) 5,000 unit SUB-Q Q12HR [facility] Hydralazine HCl (Apresoline) 10 mg IV Q4H PRN PRN Reason: Blood Pressure Insulin Human Lispro (Humalog) 0 unit SUB-Q ACHS [facility]; Protocol Last Admin: 08/03/19 22:48 Dose: 2 unit Documented by: Magnesium Hydroxide (Milk Of Magnesia) 30 ml PO Q4H PRN PRN Reason: Constipation Metoclopramide HCl (Reglan) 10 mg PO Q6H PRN PRN Reason: Nausea And Vomiting Nicotine (Habitrol) 14 mg TD QDAY [facility] Last Admin: 08/03/19 22:53 Dose: 14 mg Documented by: Ondansetron HCl (Zofran) 4 mg IV Q8H PRN PRN Reason: Nausea And Vomiting Promethazine HCl (Phenergan) 25 mg IA Q6H PRN PRN Reason: Nausea And Vomiting Sodium Chloride (Sodium Chloride Flush Syringe 10 Ml) 10 ml IV BID [facility] Last Admin: 08/03/19 22:55 Dose: 10 ml Documented by: Sodium Chloride (Sodium Chloride Flush Syringe 10 Ml) 10 ml IV PRN PRN PRN Reason: LINE FLUSH Exam - Constitutional Vitals: Temp Pulse Resp BP Pulse Ox 98.1 F 89 18 138/86 98 08/03/19 22:42 08/03/19 22:50 08/03/19 22:50 08/03/19 22:42 08/03/19 22:50 Results - Labs CBC & Chem 7: 08/03/19 16:58 08/03/19 16:58 Labs: Laboratory Last Values WBC 7.0 K/mm3 (4.5-11.0) 08/03/19 16:58 RBC 3.78 M/mm3 (3.65-5.03) 08/03/19 16:58 Hgb 12.4 gm/dl (11.8-15.2) 08/03/19 16:58 Hct 36.1 % (35.5-45.6) 08/03/19 16:58 MCV 96 fl (84-94) H 08/03/19 16:58 MCH 33 pg (28-32) H 08/03/19 16:58 MCHC 34 % (32-34) 08/03/19 16:58 RDW 13.8 % (13.2-15.2) 08/03/19 16:58 Plt Count 319 K/mm3 (140-440) 08/03/19 16:58 Lymph % (Auto) 28.1 % (13.4-35.0) 08/03/19 16:58 Dickey % (Auto) 9.1 % (0.0-7.3) H 08/03/19 16:58 Eos % (Auto) 1.6 % (0.0-4.3) 08/03/19 16:58 Baso % (Auto) 0.6 % (0.0-1.8) 08/03/19 16:58 Lymph # 2.0 K/mm3 (1.2-5.4) 08/03/19 16:58 Dickey # 0.6 K/mm3 (0.0-0.8) 08/03/19 16:58 Eos # 0.1 K/mm3 (0.0-0.4) 08/03/19 16:58 Baso # 0.0 K/mm3 (0.0-0.1) 08/03/19 16:58 Seg Neutrophils % 60.6 % (40.0-70.0) 08/03/19 16:58 Seg Neutrophils # 4.3 K/mm3 (1.8-7.7) 08/03/19 16:58 PT 13.0 Sec. (12.2-14.9) 08/03/19 16:58 INR 0.97 (0.87-1.13) 08/03/19 16:58 APTT 26.6 Sec. (24.2-36.6) 08/03/19 16:58 Thrombin Time 16.9 Sec. (15.1-19.6) 08/03/19 16:58 Sodium 139 mmol/L (137-145) 08/03/19 16:58 Potassium 3.9 mmol/L (3.6-5.0) 08/03/19 16:58 Chloride 100.1 mmol/L (98-107) 08/03/19 16:58 Carbon Dioxide 26 mmol/L (22-30) 08/03/19 16:58 Anion Gap 17 mmol/L 08/03/19 16:58 BUN 19 mg/dL (9-20) 08/03/19 16:58 Creatinine 0.7 mg/dL (0.8-1.5) L 08/03/19 16:58 Estimated GFR > 60 ml/min 08/03/19 16:58 BUN/Creatinine Ratio 27 % 08/03/19 16:58 Glucose 332 mg/dL (75-100) H 08/03/19 16:58 POC Glucose 156 (70-105) H 08/04/19 00:12 Hemoglobin A1c 7.6 % (4-6) H 08/03/19 23:30 Calcium 9.6 mg/dL (8.4-10.2) 08/03/19 16:58 Magnesium 2.00 mg/dL (1.7-2.3) 08/03/19 16:58 Total Bilirubin 0.40 mg/dL (0.1-1.2) 08/03/19 16:58 AST 17 units/L (5-40) 08/03/19 16:58 ALT 21 units/L (7-56) 08/03/19 16:58 Alkaline Phosphatase 111 units/L (35-129) 08/03/19 16:58 Total Creatine Kinase 52 units/L (55-170) L 08/03/19 16:58 CK-MB (CK-2) 1.6 ng/mL (0.0-4.0) 08/03/19 16:58 CK-MB (CK-2) Rel Index 3.0 (0-4) 08/03/19 16:58 Troponin T < 0.010 ng/mL (0.00-0.029) 08/03/19 22:44 Total Protein 6.7 g/dL (6.3-8.2) 08/03/19 16:58 Albumin 3.8 g/dL (3.9-5) L 08/03/19 16:58 Albumin/Globulin Ratio 1.3 % 08/03/19 16:58 TSH 1.940 mlU/mL (0.270-4.200) 08/03/19 16:58 Plasma/Serum Alcohol < 0.01 % (0-0.07) 08/03/19 16:58 Assessment and Plan Assessment and plan: 44-year-old man with a history of diabetes, status post fracture of the right shoulder on July 21 comes to the emergency room for evaluation of slurred speech and facial droop. Patient stated that he does not know the onset. Patient stated when he was evaluated on July 21, his blood pressure was elevated but he was not given any antihypertensive. He now has an acute CVA, change aspirin to full dose. Agree with plan as stated above except discontinue carotid Doppler
[2019-08-03] MEDS: INSULIN LISPRO 100 UNIT/ML SUB-Q SCH (22:48)
[2019-08-03] MEDS: NICOTINE 14 MG/24 HR PATCH TD SCH (22:53)
[2019-08-03] MEDS: DOCUSATE SODIUM 100 MG CAP PO SCH (22:53)
[2019-08-04 06:06] LABS: BUN/Creatinine Ratio 32; Blood Urea Nitrogen 19 mg/dL (9-20); Calcium 9.4 mg/dL (8.4-10.2); Chol/HDL Ratio 3.31 %; HDL Cholesterol 47 mg/dL (40-59); LDL Cholesterol,Direct 112 mg/dL (50-130)
[2019-08-04 06:08] LABS: Hemolysis Index 7
[2019-08-04] MEDS: INSULIN LISPRO 100 UNIT/ML SUB-Q SCH ×4 (07:30→22:00)
[2019-08-04 08:17] LABS: Hemoglobin 11.5 gm/dl (11.8-15.2); Red Blood Count 3.58 M/mm3 (3.65-5.03)
[2019-08-04 08:18] LABS: Basophils % (Auto) 0.4 % (0.0-1.8); Eosinophils % (Auto) 2.4 % (0.0-4.3); Hematocrit 34.1 % (35.5-45.6); Lymphocytes % (Auto) 31.4 % (13.4-35.0); Mean Corpuscular HGB Conc 34 % (32-34); Mean Corpuscular Volume 95 fl (84-94); Monocytes % (Auto) 10.1 % (0.0-7.3); Platelet Count 302 K/mm3 (140-440); Red Cell Distribution Width 13.7 % (13.2-15.2)
[2019-08-04 08:19] LABS: Eosinophils # (Auto) 0.2 K/mm3 (0.0-0.4); Monocytes # (Auto) 0.7 K/mm3 (0.0-0.8)
[2019-08-04] MEDS ORDERED: ASPIRIN 81 MG TAB CHEW PO SCH (10:00)
--- NOTE | 2019-08-04 10:05 | Magnetic Resonance Report ---
MRI BRAIN 08/04/2019 INDICATION / CLINICAL INFORMATION: stroke. Slurred speech TECHNIQUE: Multiplanar, multisequence MR images of the brain were obtained. COMPARISON: CT brain 08/03/2019 FINDINGS: BRAIN / INTRACRANIAL CONTENTS: Unenhanced MR images of the brain demonstrate a 1.8 cm focus of restri cted diffusion in the region of the posterior limb of the left internal capsule,, consistent with acu te ischemic injury. There is no evidence of hemorrhage. No other areas of acute ischemic injury are p resent. Ventricles and sulci are normal in size and shape. There is no evidence of hemorrhage or mass. There are no abnormal extra-axial fluid collections. EXTRACRANIAL: Unremarkable CRANIOCERVICAL JUNCTION: No significant abnormality. VASCULAR FLOW-VOIDS: No significant abnormality. IMPRESSION: Acute infarct left internal capsule. Signer Name: Shai Kinsey MD Signed: 08/04/2019 10:00 AM Workstation Name: [id number]
--- NOTE | 2019-08-04 10:07 | Magnetic Resonance Report ---
MRA HEAD 08/04/2019 INDICATION / CLINICAL INFORMATION: stroke. Slurred speech. Acute left-sided subcortical infarct TECHNIQUE: Routine MRA of the head is performed. 3-D/MIP reformats postprocessed. COMPARISON: None available. FINDINGS: MRA HEAD: Intracranial internal carotid arteries: No significant abnormality. Anterior cerebral arteries: No significant abnormality. Middle cerebral arteries: No significant abnormality. Intracranial vertebral arteries: No significant abnormality. Basilar artery: No significant abnormality. Posterior cerebral arteries: No significant abnormality. IMPRESSION: No significant abnormality. Signer Name: Shai Kinsey MD Signed: 08/04/2019 10:03 AM Workstation Name: [id number]
[2019-08-04] MEDS: ASPIRIN 81 MG TAB CHEW PO SCH (11:57)
[2019-08-04] MEDS: DOCUSATE SODIUM 100 MG CAP PO SCH ×2 (11:57→21:55)
[2019-08-04] MEDS: NICOTINE 14 MG/24 HR PATCH TD SCH (11:57)
[2019-08-04] MEDS: HEPARIN 5,000 UNIT/1 ML VIAL SUB-Q SCH ×2 (11:58→21:56)
[2019-08-04] MEDS ORDERED: POTASSIUM CHLORIDE ER 20 MEQ TAB PO ONE (12:47)
--- NOTE | 2019-08-04 12:53 | Progress Note ---
Assessment and Plan Acute CVA -CT Head showed: Low-attenuation region in the left gangliocapsular region may represent an area of infarction, age indeterminate _ MRI showed left IC CVA -presented with Right Facial droop -Allowed for permissive hypertension for 24 h - was Not candidate for TPA -Started on ASA and statin - bilateral carotid Doppler, Echo pending -Tele Neuro consulted and recommendations appreciated -Neurology consulted Insulin-dependent DM -Uncontrolled -BG 332 on admission -POC BG monitoring -SSI coverage qachs -Hgb A1c 7.6 Hx HLD -On statin Tobacco abuse -Current smoker -Counseled for cessation for 10 minutes -Nicotine patch when necessary HTN, uncontrolled - will place on Norvasc and coreg Hypokalemia, replete DVT PPX -on Heaprin Disposition: possibly tomorrow if pending studies normal and BP stable Brief history: 44-year-old -[place] male who is an ongoing smoker with history of right arm/shoulder inury, insulin-dependent diabetes and HLD who presents to [facility] ED with complaints of right facial droop and slurred speech. Pt was seen/ evaluated by Dr. Petty (tele-neurology). Given his last known normal was >4.5hrs ago he was not a candidate for TPA. Admitted to telemetry for further evaluation and treatment. Subjective Date of service: 08/04/19 Interval history: Patient seen and examined denies any new focal weaknesses no chest pain or SOB Objective - Constitutional Vitals: Vital Signs - 12hr 08/04/19 08/04/19 08/04/19 03:43 06:50 10:23 Temperature 98.3 F 97.4 F L Pulse Rate 79 86 74 Respiratory 18 18 Rate Blood Pressure 152/90 164/95 O2 Sat by Pulse 96 100 Oximetry General appearance: Present: no acute distress, well-nourished - EENT Eyes: PERRL, EOM intact ENT: hearing intact, clear oral mucosa Ears: bilateral: normal - Neck Neck: supple, normal ROM - Respiratory Respiratory effort: normal Respiratory: bilateral: CTA - Cardiovascular Rhythm: regular Heart Sounds: Present: S1 & S2. Absent: gallop, rub Extremities: pulses intact, No edema, normal color, Full ROM - Gastrointestinal General gastrointestinal: Present: soft, non-tender, non-distended, normal bowel sounds - Integumentary Integumentary: clear, warm, dry - Musculoskeletal Musculoskeletal: 1, strength equal bilaterally - Neurologic Neurologic: moves all extremities, other (mild/moderate dysarthria, partial facial weakness) - Psychiatric Psychiatric: memory intact, appropriate mood/affect, intact judgment & insight - Labs CBC & Chem 7: 08/04/19 04:10 08/04/19 04:10 Labs: Abnormal lab results 08/03/19 08/03/19 08/03/19 Range/Units 16:58 16:58 23:30 RBC (3.65-5.03) M/mm3 Hgb (11.8-15.2) gm/dl Hct (35.5-45.6) % MCV 96 H (84-94) fl MCH 33 H (28-32) pg [place] % (Auto) 9.1 H (0.0-7.3) % Potassium (3.6-5.0) mmol/L Creatinine 0.7 L (0.8-1.5) mg/dL Glucose 332 H (75-100) mg/dL POC Glucose (70-105) Hemoglobin A1c 7.6 H (4-6) % Total Creatine Kinase 52 L (55-170) units/L Albumin 3.8 L (3.9-5) g/dL 08/04/19 08/04/19 08/04/19 Range/Units 00:12 04:10 04:10 RBC 3.58 L (3.65-5.03) M/mm3 Hgb 11.5 L (11.8-15.2) gm/dl Hct 34.1 L (35.5-45.6) % MCV 95 H (84-94) fl MCH (28-32) pg [place] % (Auto) 10.1 H (0.0-7.3) % Potassium 3.5 L (3.6-5.0) mmol/L Creatinine 0.6 L (0.8-1.5) mg/dL Glucose 119 H (75-100) mg/dL POC Glucose 156 H (70-105) Hemoglobin A1c (4-6) % Total Creatine Kinase (55-170) units/L Albumin (3.9-5) g/dL 08/04/19 Range/Units 10:33 RBC (3.65-5.03) M/mm3 Hgb (11.8-15.2) gm/dl Hct (35.5-45.6) % MCV (84-94) fl MCH (28-32) pg [place] % (Auto) (0.0-7.3) % Potassium (3.6-5.0) mmol/L Creatinine (0.8-1.5) mg/dL Glucose (75-100) mg/dL POC Glucose 218 H (70-105) Hemoglobin A1c (4-6) % Total Creatine Kinase (55-170) units/L Albumin (3.9-5) g/dL
[2019-08-04] MEDS: amLODIPine 5 MG TAB PO SCH (13:52)
--- NOTE | 2019-08-04 14:59 | Consultation ---
History of Present Illness Consult date: 08/04/19 Reason for Consult: Stroke Chief complaint: Slurred speech History of present illness: Patient is a 44 y/o man w/ a h/o DM, HLD. Last known normal was when he went to sleep on the evening on 08/02/19. he woke up yesterday morning with symptoms of slurred speech and right facial weakness. Patient then came to [facility] later in the day for evaluation. Symptoms have persisted since onset. He states that his BP was elevated at a recent appointment, however he was not started on any anti-HTN meds at the time. Past History Past Medical History: diabetes (insulin dependent), hyperlipidemia, other (denies history of hypertension) Past Surgical History: Other (carpal tunnel) Social history: lives with family, smoking Family history: no significant family history Medications and Allergies Allergies Allergy/AdvReac Type Severity Reaction Status Date / Time amoxicillin AdvReac Unknown Verified 02/26/15 19:26 Home Medications Medication Instructions Recorded Confirmed Last Taken Type Insulin Glargine,Hum.rec.anlog 40 unit SQ QHS 07/29/14 08/04/19 07/28/14 History [Lantus] 1 methOCARBAMOL [Robaxin] 500 mg PO BID #10 tab 07/29/14 08/04/19 Unknown Rx traMADoL [Ultram] 50 mg PO Q6HR PRN #14 tablet 07/29/14 08/04/19 Unknown Rx Ciprofloxacin HCl [Ciprofloxacin 500 mg PO BID #14 tablet 02/27/15 08/04/19 Unk nown Rx TAB] RX: DOXYCYCLINE Hyclate 100 mg PO Q12HR #14 capsule 03/13/15 08/04/19 Unknown Rx [Vibramycin CAP] RX: metroNIDAZOLE [Flagyl TAB] 500 mg PO Q12HR #14 tab 03/13/15 08/04/19 Unknown Rx Insulin Glargine,Hum.rec.anlog 40 unit SQ HS #1 vial 08/30/17 08/04/19 Unknown Rx [Lantus] RX: Insulin Aspart (Nf) [NovoLOG 100 unit SQ AC #5 insuln.pen 08/30/17 08/04/19 Unknown Rx Flexpen] Active Meds: Active Medications Acetaminophen (Tylenol) 650 mg PO Q4H PRN PRN Reason: Pain MILD(1-3)/Fever >100.5/CARBAJAL Last Admin: 08/03/19 22:54 Dose: 650 mg Documented by: Amlodipine Besylate (Amlodipine) 5 mg PO QDAY [facility] Last Admin: 08/04/19 13:52 Dose: 5 mg Documented by: Aspirin (Baby Aspirin) 325 mg PO QDAY [facility] Last Admin: 08/04/19 11:57 Dose: 325 mg Documented by: Atorvastatin Calcium (Lipitor) 40 mg PO QHS [facility] Last Admin: 08/03/19 22:53 Dose: 40 mg Documented by: Bisacodyl (Dulcolax) 10 mg [place] QDAY PRN PRN Reason: Constipation Carvedilol (Coreg) 3.125 mg PO BID [facility] Dextrose (D50w (25gm) Syringe) 0 ml IV Q30MIN PRN; Protocol PRN Reason: Hypoglycemia Docusate Sodium (Colace) 100 mg PO BID [facility] Last Admin: 08/04/19 11:57 Dose: 100 mg Documented by: Heparin Sodium (Porcine) (Heparin) 5,000 unit SUB-Q Q12HR [facility] Last Admin: 08/04/19 11:58 Dose: 5,000 unit Documented by: Hydralazine HCl (Apresoline) 10 mg IV Q4H PRN PRN Reason: Blood Pressure Insulin Glargine (Lantus) 15 units SUB-Q QHS [facility] Insulin Human Lispro (Humalog) 0 unit SUB-Q [facility]; Protocol Last Admin: 08/04/19 11:58 Dose: 3 unit Documented by: Insulin Human Regular (Humulin R) 0 units SUB-Q [facility]; Protocol Magnesium Hydroxide (Milk Of Magnesia) 30 ml PO Q4H PRN PRN Reason: Constipation Metoclopramide HCl (Reglan) 10 mg PO Q6H PRN PRN Reason: Nausea And Vomiting Nicotine (Habitrol) 14 mg TD QDAY [facility] Last Admin: 08/04/19 11:57 Dose: Not Given Documented by: Ondansetron HCl (Zofran) 4 mg IV Q8H PRN PRN Reason: Nausea And Vomiting Promethazine HCl (Phenergan) 25 mg [place] Q6H PRN PRN Reason: Nausea And Vomiting Sodium Chloride (Sodium Chloride Flush Syringe 10 Ml) 10 ml IV BID [facility] Last Admin: 08/04/19 11:59 Dose: 10 ml Documented by: Sodium Chloride (Sodium Chloride Flush Syringe 10 Ml) 10 ml IV PRN PRN PRN Reason: LINE FLUSH Review of Systems All systems: negative Neurological: change in speech Physical Examination - Vital Signs Vital Signs: Vital Signs Pulse Ox 100 08/03/19 16:40 - Physical Exam Narrative exam: Patient is awake, alert, oriented x4, follows complex commands. Mild dysarthria. No aphasia. PERRL, EOMI, VFF, b/l intact to LT, tongue midline, right lower facial weakness. 5/5 in RUE/LUE, 5/5 in LLE/RLE. B/l intact to LT. B/l intact to FTN and HTS. 2+ reflexes throughout. - Constitutional General appearance: comfortable - EENT EENT: Present: ATNC, PERRL, mucous membranes moist, hearing intact, vision intact - Respiratory Respiratory: Present: lungs clear, normal breath sounds - Cardiovascular Cardiovascular: Present: regular rate, normal S1, normal S2 Extremities: Present: no clubbing, cyanosis, no inflammation - Gastrointestinal Gastrointestinal: Present: normoactive bowel sounds, soft, non-tender - Integumentary Integumentary: Present: normal - Musculoskeletal Musculoskeletal: Present: no fluid collection, no pain - Psychiatric Psychiatric: Present: mood/affect appropriate - Level of Consciousness 1a. Level of Consciousness: alert/keenly responsive - LOC Questions 1b. LOC Questions: answers both correctly - LOC Command 1c. LOC Commands: performs tasks correctly - Best Gaze 2. Best Gaze: normal - Visual 3. Visual: no visual loss - Facial Palsy 4. Facial Palsy: partial paralysis - Motor Arm 5a. Motor Arm Left: no drift 5b. Motor Arm Right: no drift - Motor Leg 6a. Motor Leg Left: no drift 6b. Motor Leg Right: no drift - Limb Ataxia 7. Limb Ataxia: absent - Sensory 8. Sensory: normal - Best Language 9. Best Language: no aphasia - Dysarthria 10. Dysarthria: mild/moderate dysarthria - Extinction and Inattention 11. Extinction/Inattention: no abnormality - Scoring Total Score: 3 Stroke Severity: Minor Stroke Results - Laboratory Findings CBC and BMP: 08/04/19 04:10 08/04/19 04:10 Abnormal Lab Findings: Abnormal Labs 08/03/19 08/03/19 08/03/19 16:58 16:58 23:30 RBC Hgb Hct MCV 96 H MCH 33 H [place] % (Auto) 9.1 H Potassium Creatinine 0.7 L Glucose 332 H POC Glucose Hemoglobin A1c 7.6 H Total Creatine Kinase 52 L Albumin 3.8 L 08/04/19 08/04/19 08/04/19 00:12 04:10 04:10 RBC 3.58 L Hgb 11.5 L Hct 34.1 L MCV 95 H MCH [place] % (Auto) 10.1 H Potassium 3.5 L Creatinine 0.6 L Glucose 119 H POC Glucose 156 H Hemoglobin A1c Total Creatine Kinase Albumin 08/04/19 08/04/19 10:33 12:39 RBC Hgb Hct MCV MCH [place] % (Auto) Potassium Creatinine Glucose POC Glucose 218 H 199 H Hemoglobin A1c Total Creatine Kinase Albumin Assessment and Plan Patient is a 44 y/o man w/ a h/o DM, HLD, who p/w slurred speech and right facial droop. According to the patient's clinical findings, he has had an ischemic stroke. Plan: 1. Stroke: - MRI revealed left subcortical stroke - MRA head: no significant stenosis - Echo: pending - Check carotid ultrasound - LDL 112. Cont. statin. LDL goal <70. - Cont. ASA - PT/OT/ST - Telemetry monitoring while inpatient - DVT Ppx: recommend lovenox 2. Blood Pressure: - Recommend target normotension from tomorrow. -Will continue to monitor patient. Thank you for allowing me to take part in the care of this patient. Az Block MD Neurology
--- NOTE | 2019-08-04 16:11 | Vascular Lab Report ---
"DUPLEX DOPPLER ULTRASOUND CAROTID, BILATERAL INDICATION: stroke. FINDINGS: RIGHT CAROTID: Mild plaque Right CCA velocity: 69 cm/sec. Right ICA peak systolic velocity: 51 cm/sec. ICA/CCA PSV Ratio: 0.74. Right Vertebral Artery: Antegrade flow. LEFT CAROTID: Mild plaque Left CCA velocity: 70 cm/sec. Left ICA peak systolic velocity: 73 cm/sec. ICA/CCA PSV Ratio: 1.05. Left Vertebral Artery: Antegrade flow. IMPRESSION: 1. Right Internal Carotid Artery: Less than 50% diameter stenosis. 2. Left Internal Carotid Artery: Less than 50% diameter stenosis. Velocity criteria are extrapolated from diameter data as defined by the Society of Radiologists in Ul trasound Consensus Conference, Radiology 2003; 229;340-346. Degree of Stenosis (%) || ICA PSV (cm/sec) || Plaque estimate (%) || ICA/CCA PSV Ratio Normal <125 None <2.0 <50 <125 <50 <2.0 50-69 125-230 50 2.0-4.0 70 but less than 100 >230 50 >4.0 Near occlusion High, low, or none visible variable Total occlusion None visible; no lumen N/A Signer Name: Stevan Boyle MD Signed: 08/04/2019 4:07 PM Workstation Name: [id number]"
[2019-08-04] MEDS: INSULIN REGULAR, HUMAN 100 UNITS/1 ML SUB-Q SCH ×2 (18:52→22:00)
[2019-08-04] MEDS: hydrALAZINE 20 MG/1 ML INJ IV PRN (18:53)
[2019-08-04] MEDS: carvediloL 3.125 MG TAB PO SCH (21:55)
[2019-08-04] MEDS ORDERED: INSULIN GLARGINE 100 UNITS/ML SUB-Q SCH (22:00)
[2019-08-05] MEDS: hydrALAZINE 20 MG/1 ML INJ IV PRN (07:21)
[2019-08-05] MEDS: INSULIN REGULAR, HUMAN 100 UNITS/1 ML SUB-Q SCH ×2 (07:30→13:56)
[2019-08-05] MEDS: INSULIN LISPRO 100 UNIT/ML SUB-Q SCH ×2 (07:30→13:55)
[2019-08-05] MEDS: NICOTINE 14 MG/24 HR PATCH TD SCH (10:40)
[2019-08-05] MEDS: HEPARIN 5,000 UNIT/1 ML VIAL SUB-Q SCH (10:40)
[2019-08-05] MEDS: amLODIPine 5 MG TAB PO SCH ×2 (10:41→13:56)
[2019-08-05] MEDS: ASPIRIN 81 MG TAB CHEW PO SCH (10:41)
[2019-08-05] MEDS: DOCUSATE SODIUM 100 MG CAP PO SCH (10:41)
[2019-08-05] MEDS: carvediloL 3.125 MG TAB PO SCH ×2 (10:42→13:57)
--- NOTE | 2019-08-05 11:10 | Progress Note ---
Assessment and Plan Patient is a 44 y/o man w/ a h/o DM, HLD, who p/w slurred speech and right facial droop. According to the patient's clinical findings, he has had an ischemic stroke. Plan: 1. Stroke: - MRI revealed left subcortical stroke - MRA head: no significant stenosis - Echo: Ef 55-60%, LA normal size, bubble study negative. - Carotid ultrasound: no significant stenosis. - LDL 112. Cont. statin. LDL goal <70. - Cont. ASA - PT/OT/ST - Telemetry monitoring while inpatient - DVT Ppx: recommend lovenox - Recommend f/u with neurology as outpatient in 3-4 weeks. 2. Blood Pressure: - Recommend target normotension. -Will sign off as neurologic workup is complete, and treatment plan is in place. Please call with any questions. Thank you for allowing me to take part in the care of this patient. Az Block MD Neurology Subjective Date of service: 08/05/19 Principal diagnosis: Stroke Interval history: No acute events overnight. Objective - Exam Narrative Exam: Patient is awake, alert, oriented x4, follows complex commands. Mild dysarthria. No aphasia. PERRL, EOMI, VFF, b/l intact to LT, tongue midline, right lower facial weakness. 5/5 in RUE/LUE, 5/5 in LLE/RLE. B/l intact to LT. B/l intact to FTN and HTS. 2+ reflexes throughout. - Vital Sign Vital Signs - 12hr 08/04/19 08/05/19 08/05/19 23:59 03:14 06:00 Temperature 98.0 F 98.0 F Pulse Rate 81 71 83 Respiratory 18 18 Rate Blood Pressure 122/90 155/100 O2 Sat by Pulse 100 100 Oximetry 08/05/19 08/05/19 08/05/19 07:21 07:51 10:41 Temperature 98.5 F Pulse Rate 78 78 Respiratory 18 Rate Blood Pressure 155/100 160/92 160/92 O2 Sat by Pulse 97 Oximetry 08/05/19 10:42 Temperature Pulse Rate 78 Respiratory Rate Blood Pressure 160/92 O2 Sat by Pulse Oximetry - General Apperance Constitutional: comfortable - EENT EENT: ATNC, PERRL, mucous membranes moist, hearing intact, vision intact - Respiratory Respiratory: lungs clear, normal breath sounds - Cardiovascular Cardiovascular: regular rate, normal S1, normal S2 Extremities: no clubbing, cyanosis, no inflammation - Gastrointestinal Gastrointestinal: normoactive bowel sounds, soft, non-tender - Integumentary Integumentary: normal - Musculoskeletal Musculoskeletal: no fluid collection, no pain - Psychiatric Psychiatric: mood/affect appropriate - Laboratory Findings CBC and BMP: 08/04/19 04:10 08/04/19 04:10 Abnormal Lab Findings: Abnormal Labs 08/03/19 08/03/19 08/03/19 16:58 16:58 23:30 RBC Hgb Hct MCV 96 H MCH 33 H [place] % (Auto) 9.1 H Potassium Creatinine 0.7 L Glucose 332 H POC Glucose Hemoglobin A1c 7.6 H Total Creatine Kinase 52 L Albumin 3.8 L 08/04/19 08/04/19 08/04/19 00:12 04:10 04:10 RBC 3.58 L Hgb 11.5 L Hct 34.1 L MCV 95 H MCH [place] % (Auto) 10.1 H Potassium 3.5 L Creatinine 0.6 L Glucose 119 H POC Glucose 156 H Hemoglobin A1c Total Creatine Kinase Albumin 08/04/19 08/04/19 08/04/19 10:33 12:39 17:55 RBC Hgb Hct MCV MCH [place] % (Auto) Potassium Creatinine Glucose POC Glucose 218 H 199 H 185 H Hemoglobin A1c Total Creatine Kinase Albumin 08/04/19 08/05/19 22:23 08:06 RBC Hgb Hct MCV MCH [place] % (Auto) Potassium Creatinine Glucose POC Glucose 125 H 144 H Hemoglobin A1c Total Creatine Kinase Albumin
--- NOTE | 2019-08-05 12:06 | Discharge Summary ---
Providers - Providers Date of Admission: 08/03/19 20:14 Date of discharge: 08/05/19 Attending physician: NIKITA MENCHACA 08/03/19 Consult to Physician [CONS] Routine Comment: Consulting Provider: ISAIAH GARZA Physician Instructions: Reason For Exam: sub acute stroke 08/03/19 20:21 Consult to Case Management [CONS] Routine Services Needed at Discharge: Home Health Services Notified:: YES Consult to Dietitian/Nutrition [CONS] Routine Physician Instructions: Reason For Exam: Reason for Consult: Nutrition Recommendations Reason for Consult: Diet education Occupational Therapy Evaluate and Treat [CONS] Routine Comment: Reason For Exam: Neuro deficits Physical Therapy Evaluation and Treat [CONS] Routine Comment: Reason For Exam: Neuro deficits Primary care physician: [employer] Hospitalization Condition: Good Pertinent studies: Head CT Brain MRI/MRA Carotid doppler 2D echocardiogram Hospital course: 44-year-old -[place]anese male who is an ongoing smoker with history of right arm/shoulder inury, insulin-dependent diabetes and HLD who presents to [facility] ED with complaints of right facial droop and slurred speech. Pt was seen/ evaluated by Dr. Petty (tele-neurology). Given his last known normal was >4.5hrs ago he was not a candidate for TPA. Admitted to telemetry for further evaluation and treatment. Discharge diagnosis and Mx: /Acute CVA -CT Head showed: Low-attenuation region in the left gangliocapsular region may represent an area of infarction, age indeterminate - MRI showed left IC/subcortical CVA -presented with Right Facial droop -Allowed for permissive hypertension for 24 h - was Not candidate for TPA -Started on ASA and statin - bilateral carotid Doppler showed <50% stenosis, Echo showed normal EF study -Tele Neuro consulted on admission then inpt Neurology followed /Insulin-dependent DM -Uncontrolled -BG 332 was on admission -ordered SSI coverage qachs -Hgb A1c 7.6 /HLD, need LDL <70 -Placed On statin /Tobacco abuse -Current smoker -Counseled for cessation for 10 minutes -Nicotine patch when necessary /HTN, uncontrolled - placed on Norvasc and coreg - further adjustment outpt /Hypokalemia, repleted /DVT PPX -on Heaprin Disposition: home with outpt f/u Physical exam: General appearance: Present: no acute distress, well-nourished - EENT Eyes: PERRL, EOM intact ENT: hearing intact, clear oral mucosa Ears: bilateral: normal - Neck Neck: supple, normal ROM - Respiratory Respiratory effort: normal Respiratory: bilateral: CTA - Cardiovascular Rhythm: regular Heart Sounds: Present: S1 & S2. Absent: gallop, rub Extremities: pulses intact, No edema, normal color, Full ROM - Gastrointestinal General gastrointestinal: Present: soft, non-tender, non-distended, normal bowel sounds - Integumentary Integumentary: clear, warm, dry - Musculoskeletal Musculoskeletal: 1, strength equal bilaterally - Neurologic Neurologic: moves all extremities, other (mild/moderate dysarthria, partial facial weakness) - Psychiatric Psychiatric: memory intact, appropriate mood/affect, intact judgment & insight Disposition: DC-01 TO HOME OR SELFCARE Time spent for discharge: 34 minutes Core Measure Documentation - Palliative Care Palliative Care/ Comfort Measures: Not Applicable - Core Measures Any of the following diagnoses?: none Exam - Constitutional Vitals: Temp Pulse Resp BP Pulse Ox 98.5 F 78 20 150/92 20 L 08/05/19 07:51 08/05/19 10:42 08/05/19 10:00 08/05/19 10:42 08/05/19 10:00 Plan Activity: advance as tolerated Weight Bearing Status: Weight Bear as Tolerated Diet: diabetic Special Instructions: record daily BP diary, record blood sugar diary, smoking cessation Follow up with: PRIMARY CARE, [Primary Care Provider] - 3-5 Days Prescriptions: AtorvaSTATin [Lipitor] 40 mg PO QHS #30 tablet amLODIPine 10 mg PO QDAY #30 tablet carvediloL [Coreg] 6.25 mg PO BID #60 tablet Aspirin EC [Halfprin EC] 81 mg PO QDAY #30 tablet.
[2019-08-05 13:57] VITALS: BP 142/99
[2019-08-05] MEDS ORDERED: amLODIPine 10 MG TAB PO SCH (14:00)
[2019-08-05] MEDS ORDERED: carvediloL 6.25 MG TAB PO SCH ×2 (14:00→22:00)
[2019-08-05] MEDS ORDERED: amLODIPine 5 MG TAB PO ONE (14:30)
[2019-08-05] MEDS ORDERED: carvediloL 3.125 MG TAB PO ONE (14:30)
[2019-08-06] MEDS ORDERED: amLODIPine 10 MG TAB PO SCH (10:00)
== END 2019-08-05 14:24 | disposition home or self-care (01) | DRG 66 ==
LOC: ED 16:22 → 4A 20:14
PROVIDERS: ADMIT Internal Medicine; ATTEND Internal Medicine
DX: I63.512 Cerebral infarction due to unspecified occlusion or stenosis of left middle cerebral artery (principal); E11.9 Type 2 diabetes mellitus without complications; E78.5 Hyperlipidemia, unspecified; I10 Essential (primary) hypertension; E87.6 Hypokalemia; R29.810 Facial weakness; F17.210 Nicotine dependence, cigarettes, uncomplicated; Z71.6 Tobacco abuse counseling; Z88.1 Allergy status to other antibiotic agents; Z79.4 Long term (current) use of insulin; Z79.899 Other long term (current) drug therapy; Z87.81 Personal history of (healed) traumatic fracture; Z91.81 History of falling
CPT/HCPCS: 36415; 70450; 70544; 70551; 80048; 80053; 80061; 80320; 82550; 82553; 82962; 83036; 83735; 84443; 84484; 85025; 85610; 85670; 85730; 93005; 93010; 93306; 93880; G0378; A9270-GY; G0480; J0360; J1644; J1815